=== PATIENT | female | born 1950 | race Two or more races ===

== ENCOUNTER → 2019-03-06 | Outpatient (CLI) | payer OTHER | END | disposition home or self-care (01) | LOC: RAD 09:31 | DX: M25.562 Pain in left knee (principal); M21.162 Varus deformity, not elsewhere classified, left knee ==

== ENCOUNTER → 2019-04-20 09:05 | Outpatient (CLI) | payer OTHER | END | disposition home or self-care (01) | LOC: LAB 09:05 | DX: E16.1 Other hypoglycemia (principal); E78.00 Pure hypercholesterolemia, unspecified; D50.8 Other iron deficiency anemias; E06.9 Thyroiditis, unspecified; N39.0 Urinary tract infection, site not specified ==

== ENCOUNTER 2019-07-27 13:18 | Outpatient (CLI) | payer OTHER ==
[2019-07-28] MEDS ORDERED: CARTRIDGE STAM1 EACH SQ (11:38)
[2019-07-28] MEDS ORDERED: BASAGLAR K100 UNIT/1 SUBCUTANEO (11:39)
[2019-07-28] MEDS ORDERED: NOVOLOG100 UNIT/1 SUBCUTANEO (11:40)
[2019-07-28] MEDS ORDERED: ULTRAM50 MG PO (11:42)
[2019-07-28] MEDS ORDERED: ASPIR-LOW81 MG PO (11:44)
[2019-07-28] MEDS ORDERED: FORTEO2.4 ML SQ (11:54)
== END 2019-07-27 13:22 | disposition home or self-care (01) ==
LOC: RAD 13:18
DX: Z76.89 Persons encountering health services in other specified circumstances (principal); M79.652 Pain in left thigh; M79.605 Pain in left leg

== ENCOUNTER 2019-07-28 06:32 | Outpatient (CLI) | payer OTHER ==
[2019-07-28] MEDS ORDERED: CARTRIDGE STAM1 EACH SQ (11:38)
[2019-07-28] MEDS ORDERED: BASAGLAR K100 UNIT/1 SUBCUTANEO (11:39)
[2019-07-28] MEDS ORDERED: NOVOLOG100 UNIT/1 SUBCUTANEO (11:40)
[2019-07-28] MEDS ORDERED: ULTRAM50 MG PO (11:42)
[2019-07-28] MEDS ORDERED: ASPIR-LOW81 MG PO (11:44)
[2019-07-28] MEDS ORDERED: FORTEO2.4 ML SQ (11:54)
== END 2019-07-28 06:44 | disposition home or self-care (01) ==
LOC: LAB 06:32
DX: D64.89 Other specified anemias (principal); E88.89 Other specified metabolic disorders; D68.8 Other specified coagulation defects; N39.0 Urinary tract infection, site not specified; Z22.322 Carrier or suspected carrier of Methicillin resistant Staphylococcus aureus; I10 Essential (primary) hypertension; I49.8 Other specified cardiac arrhythmias

== ENCOUNTER 2019-07-31 11:52 | Outpatient (CLI) | payer OTHER ==
[~2019-07-31 11:52] MED LIST: ASPIR-LOW81 MG PO; BASAGLAR K100 UNIT/1 SUBCUTANEO; CARTRIDGE STAM1 EACH SQ; FORTEO2.4 ML SQ; NOVOLOG100 UNIT/1 SUBCUTANEO; ULTRAM50 MG PO
== END 2019-07-31 11:57 | disposition home or self-care (01) ==
LOC: NUCLEAR 11:52
PROVIDERS: ATTEND Orthopaedic Surgery
DX: M81.0 Age-related osteoporosis without current pathological fracture (principal)

== ENCOUNTER → 2019-08-18 09:15 | Outpatient (CLI) | payer OTHER | END | disposition home or self-care (01) | LOC: LAB 09:15 | PROVIDERS: ATTEND Orthopaedic Surgery | DX: Z22.322 Carrier or suspected carrier of Methicillin resistant Staphylococcus aureus (principal) ==

== ENCOUNTER 2019-08-25 07:13 | Outpatient (CLI) | payer OTHER | END 2019-08-25 07:25 | disposition home or self-care (01) | LOC: LAB 07:13 → RAD 07:13 → LAB 07:25 | PROVIDERS: ATTEND Orthopaedic Surgery | DX: I49.8 Other specified cardiac arrhythmias (principal); I10 Essential (primary) hypertension; D64.89 Other specified anemias; E88.89 Other specified metabolic disorders; D68.8 Other specified coagulation defects; N39.0 Urinary tract infection, site not specified ==

== ENCOUNTER 2019-08-28 13:52 | Outpatient (CLI) | payer OTHER | END 2019-08-28 15:00 | disposition home or self-care (01) | LOC: LAB 13:52 | PROVIDERS: ATTEND Orthopaedic Surgery | DX: Z86.72 Personal history of thrombophlebitis (principal) ==

== ENCOUNTER 2019-09-02 07:08 | Outpatient (CLI) | payer OTHER | END 2019-09-02 07:24 | disposition home or self-care (01) | LOC: LAB 07:08 | PROVIDERS: ATTEND Orthopaedic Surgery | DX: D50.8 Other iron deficiency anemias (principal); D51.8 Other vitamin B12 deficiency anemias; D68.8 Other specified coagulation defects; D69.1 Qualitative platelet defects; M17.12 Unilateral primary osteoarthritis, left knee; N39.0 Urinary tract infection, site not specified ==

== ENCOUNTER 2019-09-14 09:53 | Inpatient (IN) | payer OTHER ==
[~2019-09-14] VITALS: Ht 170.2 cm; Wt 61.2 kg
== END 2019-09-23 13:22 | disposition home or self-care (01) | DRG 470 ==
LOC: O/R 09-21 05:48 → SURH 09-21 05:48
PROVIDERS: ADMIT Orthopaedic Surgery; ATTEND Orthopaedic Surgery
PROC: 0LQM0ZZ Repair Left Upper Leg Tendon, Open Approach (ICD-10-PCS; 2019-09-21)
PROC: 0SRD0JZ Replacement of Left Knee Joint with Synthetic Substitute, Open Approach (ICD-10-PCS; principal; 2019-09-21 07:00)
PROC: 30233N1 Transfusion of Nonautologous Red Blood Cells into Peripheral Vein, Percutaneous Approach (ICD-10-PCS; 2019-09-22)
DX: M17.12 Unilateral primary osteoarthritis, left knee (principal); D62 Acute posthemorrhagic anemia; M21.062 Valgus deformity, not elsewhere classified, left knee; E11.9 Type 2 diabetes mellitus without complications; D64.9 Anemia, unspecified; Z86.718 Personal history of other venous thrombosis and embolism; Z86.711 Personal history of pulmonary embolism

== ENCOUNTER 2019-09-16 11:19 | Outpatient (CLI) | payer OTHER | END 2019-09-16 11:26 | disposition home or self-care (01) | LOC: LAB 11:19 | PROVIDERS: ATTEND Orthopaedic Surgery | DX: R05 Cough (principal); R06.2 Wheezing; Z03.818 Encounter for observation for suspected exposure to other biological agents ruled out; Z20.828 Contact with and (suspected) exposure to other viral communicable diseases ==

== ENCOUNTER 2019-10-07 11:08 | Outpatient (CLI) | payer OTHER | END 2019-10-07 11:14 | disposition home or self-care (01) | LOC: NUCLEAR 11:08 | PROVIDERS: ATTEND Orthopaedic Surgery | DX: I80.292 Phlebitis and thrombophlebitis of other deep vessels of left lower extremity (principal) ==

== ENCOUNTER → 2019-10-27 07:39 | Outpatient (CLI) | payer OTHER | END | disposition home or self-care (01) | LOC: LAB 07:39 | PROVIDERS: ATTEND Orthopaedic Surgery | DX: M85.88 Other specified disorders of bone density and structure, other site (principal); E55.9 Vitamin D deficiency, unspecified; E56.1 Deficiency of vitamin K ==

== ENCOUNTER → 2019-12-30 11:32 | Outpatient (CLI) | payer OTHER | END | disposition home or self-care (01) | LOC: LAB 11:32 | PROVIDERS: ATTEND Orthopaedic Surgery | DX: E21.2 Other hyperparathyroidism (principal); E88.89 Other specified metabolic disorders; M81.8 Other osteoporosis without current pathological fracture ==

== ENCOUNTER → 2020-11-26 | Outpatient (CLI) | payer OTHER | END | disposition home or self-care (01) | LOC: RAD 08:19 | PROVIDERS: ATTEND Orthopaedic Surgery | DX: S80.01XA Contusion of right knee, initial encounter (principal) ==

== ENCOUNTER 2020-12-05 09:58 | Outpatient (CLI) | payer OTHER | END 2020-12-05 10:07 | disposition home or self-care (01) | LOC: RAD 09:58 | PROVIDERS: ATTEND Orthopaedic Surgery | DX: S80.01XA Contusion of right knee, initial encounter (principal) ==

== ENCOUNTER 2020-12-26 07:10 | Outpatient (CLI) | payer OTHER | END 2020-12-26 07:12 | disposition home or self-care (01) | LOC: RAD 07:10 | PROVIDERS: ATTEND Orthopaedic Surgery | DX: S82.034D Nondisplaced transverse fracture of right patella, subsequent encounter for closed fracture with routine healing (principal) ==

== ENCOUNTER 2021-01-10 11:55 | Outpatient (CLI) | payer OTHER | END 2021-01-10 12:00 | disposition home or self-care (01) | LOC: RAD 11:55 | PROVIDERS: ATTEND Physical Medicine & Rehabilitation | DX: M54.59 Other low back pain (principal); M53.3 Sacrococcygeal disorders, not elsewhere classified ==

== ENCOUNTER 2023-02-15 10:14 | Outpatient (CLI) | payer OTHER | END 2023-02-15 10:23 | disposition home or self-care (01) | LOC: RAD 10:14 | PROVIDERS: ATTEND Internal Medicine | DX: Z95.810 Presence of automatic (implantable) cardiac defibrillator (principal) ==